=== PATIENT | female | born 1945 | race Caucasian/White ===

== ENCOUNTER → 2016-09-09 | Outpatient (CLI) | payer MEDICARE, MEDICAID ==
[~2016-09-09] MED LIST: SIMV10TA2
== END | disposition home or self-care (01) ==
LOC: MAMMO 08:25
PROVIDERS: ATTEND Specialist
DX: Z12.31 Encounter for screening mammogram for malignant neoplasm of breast (principal)
CPT/HCPCS: G0202

== ENCOUNTER → 2016-09-23 | Outpatient (CLI) | payer MEDICARE, MEDICAID | END | disposition home or self-care (01) | LOC: MAMMO 09:04 | PROVIDERS: ATTEND Specialist | DX: N63 Unspecified lump in breast (principal) | CPT/HCPCS: 76641; G0206 ==

== ENCOUNTER 2016-12-04 13:51 | Emergency (ER) | payer MEDICARE, MEDICAID ==
[~2016-12-04] VITALS: Ht 147.3 cm; Wt 48.0 kg
[2016-12-04 13:53] VITALS: BP 165/80
== END 2016-12-04 19:00 | disposition left against medical advice (07) ==
LOC: ER 13:51
DX: Z53.21 Procedure and treatment not carried out due to patient leaving prior to being seen by health care provider (principal)

== ENCOUNTER → 2017-09-24 | Outpatient (CLI) | payer MEDICARE, MEDICAID | END | disposition home or self-care (01) | LOC: MAMMO 10:59 | PROVIDERS: ATTEND Specialist | DX: Z12.31 Encounter for screening mammogram for malignant neoplasm of breast (principal); R92.1 Mammographic calcification found on diagnostic imaging of breast | CPT/HCPCS: 77067 ==

== ENCOUNTER 2019-05-15 07:19 | Inpatient (IN) | payer MEDICARE, MEDICAID ==
[2019-05-15] VITALS (9 sets, daily range): BP systolic 125–154; BP diastolic 66–94
[~2019-05-15] VITALS: Ht 160 cm; Wt 53.6 kg
[2019-05-15] MEDS ORDERED: POTA-79 PO (08:28)
[2019-05-15] MEDS ORDERED: MULT-1146 PO (08:28)
[2019-05-15] MEDS ORDERED: FURO40TA5 PO (08:28)
[2019-05-15] MEDS ORDERED: PRAV40TA PO (08:28)
[2019-05-15] MEDS ORDERED: DIGO125T PO (08:28)
[2019-05-15] MEDS ORDERED: LEVO75TA7 PO (08:28)
[2019-05-15] MEDS ORDERED: DILT360T13 PO (08:28)
[2019-05-15] MEDS ORDERED: DONE5TAB33 PO (08:28)
[2019-05-15] MEDS ORDERED: WARF2.5T47 PO (08:28)
[2019-05-15] MEDS ORDERED: METO-396 PO (08:28)
[2019-05-15] MEDS ORDERED: MIRT15TA6 PO (08:28)
[2019-05-15] MEDS ORDERED: LOSA25TA26 PO (08:28)
[2019-05-15 08:40] LABS: BASOPHILS % 0.5 % (0.0-2.0); EOSINOPHILS % 0.9 % (0.0-5.0); HEMATOCRIT. 39.6 % (36.0-48.0); HEMOGLOBIN. 13.4 g/dL (12.0-16.0); LYMPHOCYTES % 12.4 % (20.0-50.0); MEAN CORPUSCULAR HEMOGLOBIN 29.9 pg (28.0-32.0); MEAN CORPUSCULAR VOLUME 88.3 fL (81.0-99.0); MEAN PLATELET VOLUME 8.6 fl (7.4-10.4); MONOCYTES % 7.3 % (2.0-8.0); NEUTROPHILS % 78.9 % (40.0-76.0); PLATELET 273 x1000/uL (130-400); RED BLOOD CELL COUNT 4.49 mill/uL (4.2-5.4)
[2019-05-15 08:50] LABS: INR 1.7; PARTIAL THROMBOPLASTIN TIME 36.4 sec (23.4-31.0); PROTHROMBIN TIME 17.6 sec (9.6-11.0)
[2019-05-15] MEDS ORDERED: GENTAMICIN SULF 40MG/ML 2ML VIAL ONE (10:42)
[2019-05-15] MEDS ORDERED: CEFAZOLIN 1000MG PREMIX 0 ML IV ONE (10:43)
[2019-05-15] MEDS ORDERED: GENTAMICIN/NS IRRIGATION 500 ML IR ONE (10:43)
[2019-05-15] MEDS ORDERED: LIDOCAINE HCL 1% 20ML VIAL (Pyxis) INJ ONE (10:43)
[2019-05-15] MEDS ORDERED: IODIXANOL 320MG/ML 100 ML BOTTLE IV ONE (10:44)
[2019-05-15] MEDS ORDERED: GLYCOPYRROLATE 0.2 MG/ML 2ML VIAL ONE (11:02)
[2019-05-15] MEDS ORDERED: FENTANYL CITRATE/PF 50MCG/ML 2ML VIAL ONE (11:02)
[2019-05-15] MEDS ORDERED: PROPOFOL 200MG/20ML VIAL IV ONE (11:02)
[2019-05-15] MEDS ORDERED: MIDAZOLAM HCL 2 MG/2 ML VIAL ONE (11:02)
[2019-05-15] MEDS ORDERED: ONDANSETRON HCL 4MG/2ML INJ ONE (11:03)
[2019-05-15] MEDS ORDERED: METOCLOPRAMIDE HCL 10MG/2ML VIAL ONE (11:03)
[2019-05-15] MEDS ORDERED: LIDOCAINE HCL/PF 1% 10 MG/ML 5ML VIAL ONE (11:03)
[2019-05-15] MEDS ORDERED: SUCCINYLCHOLINE CHLORIDE 200MG/10ML IV ONE (11:03)
[2019-05-15] MEDS ORDERED: PROPOFOL 10MG/ML 100ML 100 ML IV ONE (11:25)
[2019-05-15] MEDS ORDERED: DIGOXIN 125MCG TABLET PO SCH (18:00)
[2019-05-15] MEDS: DONEPEZIL HCL 5MG TABLET PO SCH (19:56)
[2019-05-15] MEDS: WARFARIN SODIUM 2.5MG TABLET PO SCH (19:56)
[2019-05-15] MEDS: MIRTAZAPINE 15MG TABLET PO SCH (22:10)
[2019-05-15] MEDS: METOPROLOL TARTRATE 25MG TABLET PO SCH (22:13)
[2019-05-16] VITALS (15 sets, daily range): BP systolic 99–146; BP diastolic 49–100
[2019-05-16] MEDS: FUROSEMIDE 40MG TABLET PO SCH (08:32)
[2019-05-16] MEDS: DILTIAZEM HCL 180MG CAPSULE CD 24HR PO SCH (08:33)
[2019-05-16] MEDS: METOPROLOL TARTRATE 25MG TABLET PO SCH ×2 (08:33→21:46)
[2019-05-16] MEDS: LOSARTAN POTASSIUM 25 MG TABLET PO SCH (08:34)
[2019-05-16] MEDS: POTASSIUM CHLORIDE 20MEQ TABLET SR PO SCH (08:34)
[2019-05-16] MEDS: LEVOTHYROXINE SODIUM 75MCG TABLET PO SCH (08:34)
[2019-05-16] MEDS: HYDROCODONE/ACETAMINOPHEN 5/325MG TABLET PO PRN (08:35)
[2019-05-16 08:48] LABS: INR 1.6; PROTHROMBIN TIME 15.9 sec (9.6-11.0)
[2019-05-16 10:05] LABS: BASOPHILS % 0.7 % (0.0-2.0); EOSINOPHILS % 0.7 % (0.0-5.0); HEMATOCRIT. 38.4 % (36.0-48.0); HEMOGLOBIN. 13.1 g/dL (12.0-16.0); LYMPHOCYTES % 14.5 % (20.0-50.0); MEAN CORPUSCULAR VOLUME 87.8 fL (81.0-99.0); MEAN PLATELET VOLUME 9.2 fl (7.4-10.4); MONOCYTES % 6.9 % (2.0-8.0); NEUTROPHILS % 77.2 % (40.0-76.0); PLATELET 262 x1000/uL (130-400); RED BLOOD CELL COUNT 4.38 mill/uL (4.2-5.4); RED CELL DISTRIBUTION WIDTH 15.5 % (11.6-14.6)
[2019-05-16 10:08] LABS: CHLORIDE 107 mEq/L (98-107)
[2019-05-16 10:29] LABS: DIGOXIN 1.5 ng/mL (0.9-2.0)
[2019-05-16] MEDS ORDERED: DIGOXIN 500MCG/2ML AMP IV SCH (13:00)
[2019-05-16] MEDS: WARFARIN SODIUM 2.5MG TABLET PO SCH (17:43)
[2019-05-16] MEDS ORDERED: DIGOXIN 250MCG TABLET PO SCH (18:00)
[2019-05-16] MEDS ORDERED: CHOL500051 PO (18:13)
[2019-05-16] MEDS ORDERED: CLONIDINE 0.1MG TABLET PO PRN (18:45)
[2019-05-16] MEDS: MIRTAZAPINE 15MG TABLET PO SCH (21:46)
[2019-05-16] MEDS: DONEPEZIL HCL 5MG TABLET PO SCH (21:46)
[2019-05-17] VITALS (15 sets, daily range): BP systolic 97–128; BP diastolic 50–83
[2019-05-17] MEDS: FUROSEMIDE 40MG TABLET PO SCH (05:57)
[2019-05-17] MEDS: LEVOTHYROXINE SODIUM 75MCG TABLET PO SCH (05:57)
[2019-05-17 06:04] LABS: BASOPHILS % 0.7 % (0.0-2.0); EOSINOPHILS % 0.4 % (0.0-5.0); HEMOGLOBIN. 13.2 g/dL (12.0-16.0); LYMPHOCYTES % 18.7 % (20.0-50.0); MEAN CORPUSCULAR HEMOGLOBIN 29.9 pg (28.0-32.0); MEAN CORPUSCULAR VOLUME 88.5 fL (81.0-99.0); MEAN PLATELET VOLUME 8.7 fl (7.4-10.4); MONOCYTES % 8.7 % (2.0-8.0); NEUTROPHILS % 71.5 % (40.0-76.0); PLATELET 267 x1000/uL (130-400); RED BLOOD CELL COUNT 4.41 mill/uL (4.2-5.4); RED CELL DISTRIBUTION WIDTH 15.9 % (11.6-14.6)
[2019-05-17 06:31] LABS: INR 1.5; PROTHROMBIN TIME 15.4 sec (9.6-11.0)
[2019-05-17] MEDS: POTASSIUM CHLORIDE 20MEQ TABLET SR PO SCH (08:29)
[2019-05-17] MEDS: METOPROLOL TARTRATE 25MG TABLET PO SCH ×2 (08:29→21:53)
[2019-05-17] MEDS: DILTIAZEM HCL 180MG CAPSULE CD 24HR PO SCH (08:29)
[2019-05-17] MEDS: LOSARTAN POTASSIUM 25 MG TABLET PO SCH (08:30)
[2019-05-17] MEDS: HYDROCODONE/ACETAMINOPHEN 5/325MG TABLET PO PRN (09:54)
[2019-05-17] MEDS ORDERED: ACETAMINOPHEN 325MG TABLET PO PRN (16:30)
[2019-05-17] MEDS: DIGOXIN 125MCG TABLET PO SCH (17:37)
[2019-05-17] MEDS: WARFARIN SODIUM 7.5MG TABLET PO SCH (17:37)
[2019-05-17] MEDS: DONEPEZIL HCL 5MG TABLET PO SCH (21:53)
[2019-05-17] MEDS: MIRTAZAPINE 15MG TABLET PO SCH (21:53)
[2019-05-18] VITALS (14 sets, daily range): BP systolic 103–144; BP diastolic 48–79
[2019-05-18] MEDS: LEVOTHYROXINE SODIUM 75MCG TABLET PO SCH (06:47)
[2019-05-18] MEDS: FUROSEMIDE 40MG TABLET PO SCH (06:47)
[2019-05-18 07:23] LABS: CHLORIDE 101 mEq/L (98-107)
[2019-05-18 07:55] LABS: DIGOXIN 2.5 ng/mL (0.9-2.0)
[2019-05-18] MEDS: POTASSIUM CHLORIDE 20MEQ TABLET SR PO SCH (08:21)
[2019-05-18] MEDS: DILTIAZEM HCL 180MG CAPSULE CD 24HR PO SCH (08:21)
[2019-05-18] MEDS: METOPROLOL TARTRATE 25MG TABLET PO SCH (08:22)
[2019-05-18] MEDS: LOSARTAN POTASSIUM 25 MG TABLET PO SCH (08:22)
[2019-05-18 08:30] LABS: BASOPHILS % 0.5 % (0.0-2.0); EOSINOPHILS % 0.3 % (0.0-5.0); HEMATOCRIT. 38.7 % (36.0-48.0); MEAN CORPUSCULAR HEMOGLOBIN 29.7 pg (28.0-32.0); MEAN CORPUSCULAR VOLUME 88.6 fL (81.0-99.0); MEAN PLATELET VOLUME 9.3 fl (7.4-10.4); MONOCYTES % 8.3 % (2.0-8.0); NEUTROPHILS % 80.9 % (40.0-76.0); PLATELET 226 x1000/uL (130-400); RED BLOOD CELL COUNT 4.37 mill/uL (4.2-5.4); RED CELL DISTRIBUTION WIDTH 15.8 % (11.6-14.6)
[2019-05-18] MEDS: WARFARIN SODIUM 7.5MG TABLET PO SCH (17:04)
[2019-05-18] MEDS: DIGOXIN 125MCG TABLET PO SCH (17:04)
== END 2019-05-18 22:05 | DRG 242 ==
LOC: CARD 07:19 → 3WST 07:20
PROVIDERS: ADMIT Internal Medicine Clinical Cardiac Electrophysiology; ATTEND Internal Medicine Clinical Cardiac Electrophysiology
PROC: B5171ZZ Fluoroscopy of Left Subclavian Vein using Low Osmolar Contrast (ICD-10-PCS; principal; 2019-05-15)
PROC: 02HK3JZ Insertion of Pacemaker Lead into Right Ventricle, Percutaneous Approach (ICD-10-PCS; 2019-05-15)
PROC: 0JH604Z Insertion of Pacemaker, Single Chamber into Chest Subcutaneous Tissue and Fascia, Open Approach (ICD-10-PCS; 2019-05-15)
DX: I48.21 Permanent atrial fibrillation (principal); G93.41 Metabolic encephalopathy; G62.81 Critical illness polyneuropathy; E03.9 Hypothyroidism, unspecified; I49.5 Sick sinus syndrome; I25.10 Atherosclerotic heart disease of native coronary artery without angina pectoris; F32.9 Major depressive disorder, single episode, unspecified; F41.9 Anxiety disorder, unspecified; I10 Essential (primary) hypertension; M19.90 Unspecified osteoarthritis, unspecified site; D72.829 Elevated white blood cell count, unspecified; E78.00 Pure hypercholesterolemia, unspecified; E78.5 Hyperlipidemia, unspecified; F03.90 Unspecified dementia, unspecified severity, without behavioral disturbance, psychotic disturbance, mood disturbance, and anxiety; R73.9 Hyperglycemia, unspecified; Z77.22 Contact with and (suspected) exposure to environmental tobacco smoke (acute) (chronic); Z93.3 Colostomy status; Z95.0 Presence of cardiac pacemaker; Z95.1 Presence of aortocoronary bypass graft; Z95.2 Presence of prosthetic heart valve; Z90.49 Acquired absence of other specified parts of digestive tract; Z79.01 Long term (current) use of anticoagulants; Z85.038 Personal history of other malignant neoplasm of large intestine
CPT/HCPCS: 33207; 36415; 71045; 75820; 80048; 80162; 83735; 84443; 85025; 93005; 97116; 97162; C1786; C1893; C1898; J0330; J0690; J1160; J1580; J2250; J2405; J2704; J2765; J3010; J3490; Q9967

== ENCOUNTER 2019-09-22 21:13 | Inpatient (IN) | payer MEDICARE, MEDICAID ==
[~2019-09-22] VITALS: Ht 142.2 cm; Wt 52.6 kg
[~2019-09-22 21:13] MED LIST changes: +CHOL500051 PO; +DIGO125T PO; +DILT360T13 PO; +DONE5TAB33 PO; +FURO40TA5 PO; +LEVO75TA7 PO; +LOSA25TA26 PO; +METO-396 PO; +MIRT15TA6 PO; +POTA-79 PO; +PRAV40TA PO; -SIMV10TA2; +WARF2.5T47 PO
[2019-09-22 23:59] LABS: HEMATOCRIT. 42.2 % (36.0-48.0); HEMOGLOBIN. 13.8 g/dL (12.0-16.0); MEAN CORPUSCULAR HEMOGLOBIN 30.3 pg (28.0-32.0); MEAN CORPUSCULAR VOLUME 92.7 fL (81.0-99.0); PLATELET 314 x1000/uL (130-400); RED BLOOD CELL COUNT 4.55 mill/uL (4.2-5.4); RED CELL DISTRIBUTION WIDTH 16.6 % (11.6-14.6)
[2019-09-23 00:02] LABS: CHLORIDE 106 mEq/L (98-107)
[2019-09-23 00:03] LABS: INR 2.4; PROTHROMBIN TIME 25.6 sec (9.6-11.0)
[2019-09-23 00:53] LABS: CLARITY URINE CLEAR (CLEAR); COLOR URINE DARK YELLOW (YELLOW); KETONES URINE NEGATIVE (NEGATIVE); LEUKOCYTE ESTERASE URINE TRACE (NEGATIVE); NITRITE URINE NEGATIVE (NEGATIVE); OCCULT BLOOD URINE NEGATIVE (NEGATIVE); PH URINE 6.5 (4.5-8.0); PROTEIN URINE 2+ (NEGATIVE); SPECIFIC GRAVITY URINE 1.023 (1.005-1.030)
[2019-09-23 02:35] LABS: PLATELET ESTIMATE NORMAL
[2019-09-23 11:50] VITALS: BP 135/85
[2019-09-23 11:53] VITALS: BP 135/85
[2019-09-23] MEDS: ACETAMINOPHEN 325MG TABLET PO PRN (13:29)
[2019-09-23] MEDS: SODIUM CHLORIDE 0.9% 1,000 ML IV SCH (13:36)
[2019-09-23 14:00] VITALS: BP 149/94
[2019-09-23] MEDS: METOPROLOL TARTRATE 5MG/5ML VIAL IV SCH ×2 (14:15→21:21)
[2019-09-23 16:00] VITALS: BP 157/83
[2019-09-23] MEDS: MORPHINE SULFATE 2 MG/ML CPJ (NOT FOR IM USE) IV PRN ×3 (16:20→23:32)
[2019-09-23] MEDS ORDERED: LEVOFLOXACIN 500MG PREMIX 100 ML IV SCH (16:30)
[2019-09-23] MEDS: METRONIDAZOLE 500 MG PREMIX 100 ML IV SCH (16:50)
[2019-09-23 17:47] LABS: HEPATITIS B SURFACE ANTIGEN NEGATIVE
[2019-09-23 18:17] LABS: HEPATITIS A AB IGM NEGATIVE (NEGATIVE)
[2019-09-23 20:00] VITALS: BP 141/100
[2019-09-23] MEDS: ONDANSETRON HCL 4MG/2ML INJ IV PRN (21:21)
[2019-09-23 22:00] VITALS: BP 157/87
[2019-09-24] VITALS (8 sets, daily range): BP systolic 119–152; BP diastolic 58–97
[2019-09-24] MEDS: METRONIDAZOLE 500 MG PREMIX 100 ML IV SCH ×3 (00:59→16:30)
[2019-09-24] MEDS: ACETAMINOPHEN 325MG TABLET PO PRN ×2 (02:19→16:30)
[2019-09-24] MEDS: DILTIAZEM HCL 5MG/ML 5ML VIAL IV PRN ×2 (02:20→10:59)
[2019-09-24] MEDS: SODIUM CHLORIDE 0.9% 1,000 ML IV SCH ×2 (02:21→12:45)
[2019-09-24 07:12] LABS: BASOPHILS % 0.2 % (0.0-2.0); EOSINOPHILS % 0.5 % (0.0-5.0); HEMATOCRIT. 35.7 % (36.0-48.0); HEMOGLOBIN. 11.9 g/dL (12.0-16.0); LYMPHOCYTES % 11.7 % (20.0-50.0); MEAN CORPUSCULAR HEMOGLOBIN 30.6 pg (28.0-32.0); MEAN CORPUSCULAR VOLUME 91.6 fL (81.0-99.0); MEAN PLATELET VOLUME 8.8 fl (7.4-10.4); MONOCYTES % 7.5 % (2.0-8.0); NEUTROPHILS % 80.1 % (40.0-76.0); PLATELET 246 x1000/uL (130-400); RED CELL DISTRIBUTION WIDTH 15.8 % (11.6-14.6)
[2019-09-24 07:13] LABS: INR 1.8; PROTHROMBIN TIME 19.7 sec (9.6-11.0)
[2019-09-24 08:01] LABS: CHLORIDE 110 mEq/L (98-107)
[2019-09-24 08:09] LABS: HDL CHOLESTEROL 27 mg/dL (40-59)
[2019-09-24 08:10] LABS: LDL CHOLESTEROL 105 mg/dL (5-100)
[2019-09-24 08:25] LABS: DIGOXIN 0.8 ng/mL (0.9-2.0)
[2019-09-24 09:14] LABS: AMYLASE 1388 IU/L (25-115)
[2019-09-24] MEDS ORDERED: DIGOXIN 500MCG/2ML AMP IV SCH (11:00)
[2019-09-24] MEDS: MORPHINE SULFATE 2 MG/ML CPJ (NOT FOR IM USE) IV PRN ×2 (11:52→22:47)
[2019-09-24] MEDS: ENOXAPARIN 60MG/0.6ML SYR SUBCUT SCH ×2 (12:45→22:31)
[2019-09-24] MEDS: DILTIAZEM HCL 125 MG in DEXT 5% WATER 100 ML IV SCH ×2 (13:49→23:51)
[2019-09-24] MEDS ORDERED: LEVOFLOXACIN 250MG PREMIX 50 ML IV SCH (17:00)
[2019-09-24] MEDS: DIGOXIN 500MCG/2ML AMP IV SCH (17:41)
[2019-09-25] VITALS (12 sets, daily range): BP systolic 108–149; BP diastolic 49–81
[2019-09-25] MEDS: SODIUM CHLORIDE 0.9% 1,000 ML IV SCH ×2 (00:04→20:25)
[2019-09-25] MEDS: METRONIDAZOLE 500 MG PREMIX 100 ML IV SCH ×2 (01:34→09:15)
[2019-09-25 07:07] LABS: BASOPHILS % 0.6 % (0.0-2.0); EOSINOPHILS % 0.8 % (0.0-5.0); HEMATOCRIT. 34.8 % (36.0-48.0); HEMOGLOBIN. 11.6 g/dL (12.0-16.0); LYMPHOCYTES % 8.6 % (20.0-50.0); MEAN CORPUSCULAR HEMOGLOBIN 30.7 pg (28.0-32.0); MEAN CORPUSCULAR VOLUME 92.4 fL (81.0-99.0); MEAN PLATELET VOLUME 9.1 fl (7.4-10.4); MONOCYTES % 8.2 % (2.0-8.0); NEUTROPHILS % 81.8 % (40.0-76.0); PLATELET 217 x1000/uL (130-400); RED BLOOD CELL COUNT 3.77 mill/uL (4.2-5.4); RED CELL DISTRIBUTION WIDTH 15.2 % (11.6-14.6)
[2019-09-25 07:16] LABS: INR 1.4; PROTHROMBIN TIME 15.1 sec (9.6-11.0)
[2019-09-25 07:47] LABS: CHLORIDE 107 mEq/L (98-107)
[2019-09-25] MEDS: ENOXAPARIN 60MG/0.6ML SYR SUBCUT SCH ×2 (09:30→20:24)
[2019-09-25 09:42] LABS: AMYLASE 395 IU/L (25-115)
[2019-09-25] MEDS ORDERED: DILTIAZEM HCL 125 MG in DEXT 5% WATER 100 ML IV SCH (12:03)
[2019-09-25] MEDS: MORPHINE SULFATE 2 MG/ML CPJ (NOT FOR IM USE) IV PRN ×2 (12:06→16:12)
[2019-09-25] MEDS ORDERED: DILTIAZEM HCL 5MG/ML 5ML VIAL IV PRN (13:15)
[2019-09-25] MEDS ORDERED: PIPERACILLIN/TAZOBACTAM 3.375 G/VIAL IV SCH (14:00)
[2019-09-25] MEDS ORDERED: PIPERACILLIN/TAZ 3.375G PREMIX 50 ML IV SCH (15:00)
[2019-09-25] MEDS: DILTIAZEM HCL 125 MG in DEXT 5% WATER 100 ML IV SCH (16:20)
[2019-09-25] MEDS: DIGOXIN 500MCG/2ML AMP IV SCH (17:26)
[2019-09-25] MEDS: ACETAMINOPHEN 325MG TABLET PO PRN (20:23)
[2019-09-25] MEDS: MEROPENEM 500 MG in SODIUM CHLORIDE 0.9% 50 ML IV SCH (20:24)
[2019-09-25] MEDS: ONDANSETRON HCL 4MG/2ML INJ IV PRN (20:40)
[2019-09-26] VITALS (11 sets, daily range): BP systolic 114–143; BP diastolic 50–102
[2019-09-26] MEDS: ONDANSETRON HCL 4MG/2ML INJ IV PRN (04:06)
[2019-09-26] MEDS: ACETAMINOPHEN 325MG TABLET PO PRN ×3 (04:06→22:01)
[2019-09-26] MEDS: MEROPENEM 500 MG in SODIUM CHLORIDE 0.9% 50 ML IV SCH ×3 (04:57→22:00)
[2019-09-26] MEDS: DILTIAZEM HCL 125 MG in DEXT 5% WATER 100 ML IV SCH (06:02)
[2019-09-26 06:38] LABS: HEMATOCRIT. 33.4 % (36.0-48.0); HEMOGLOBIN. 11.2 g/dL (12.0-16.0); MEAN CORPUSCULAR VOLUME 92.2 fL (81.0-99.0); MEAN PLATELET VOLUME 9.3 fl (7.4-10.4); PLATELET 228 x1000/uL (130-400); RED BLOOD CELL COUNT 3.63 mill/uL (4.2-5.4); RED CELL DISTRIBUTION WIDTH 15.1 % (11.6-14.6)
[2019-09-26 07:13] LABS: INR 1.2; PARTIAL THROMBOPLASTIN TIME 44.6 sec (23.4-31.0); PROTHROMBIN TIME 13.4 sec (9.6-11.0)
[2019-09-26 07:19] LABS: CHLORIDE 108 mEq/L (98-107)
[2019-09-26 07:26] LABS: AMYLASE 213 IU/L (25-115)
[2019-09-26] MEDS: ENOXAPARIN 60MG/0.6ML SYR SUBCUT SCH ×2 (09:00→21:00)
[2019-09-26 10:37] LABS: PLATELET ESTIMATE NORMAL
[2019-09-26] MEDS: SODIUM CHLORIDE 0.9% 1,000 ML IV SCH (12:37)
[2019-09-26] MEDS: PREDNISONE 20MG TABLET PO SCH (13:36)
[2019-09-26] MEDS: DIGOXIN 500MCG/2ML AMP IV SCH (17:29)
[2019-09-26] MEDS: DILTIAZEM HCL 60MG TABLET PO SCH (17:30)
[2019-09-26] MEDS ORDERED: DILTIAZEM HCL 30MG TABLET PO NR (21:29)
[2019-09-26] MEDS ORDERED: METOPROLOL TARTRATE 25MG TABLET PO SCH (21:45)
[2019-09-26] MEDS: METOPROLOL TARTRATE 25MG TABLET PO SCH (22:00)
[2019-09-27] VITALS (12 sets, daily range): BP systolic 110–134; BP diastolic 53–94
[2019-09-27] MEDS: DILTIAZEM HCL 60MG TABLET PO SCH ×5 (01:13→23:54)
[2019-09-27] MEDS: SODIUM CHLORIDE 0.9% 1,000 ML IV SCH ×2 (02:04→18:47)
[2019-09-27] MEDS: MEROPENEM 500 MG in SODIUM CHLORIDE 0.9% 50 ML IV SCH ×3 (05:12→21:33)
[2019-09-27 07:21] LABS: BASOPHILS % 0.3 % (0.0-2.0); EOSINOPHILS % 0.1 % (0.0-5.0); HEMATOCRIT. 35.4 % (36.0-48.0); HEMOGLOBIN. 11.9 g/dL (12.0-16.0); LYMPHOCYTES % 8.8 % (20.0-50.0); MEAN CORPUSCULAR HEMOGLOBIN 30.7 pg (28.0-32.0); MEAN CORPUSCULAR VOLUME 91.5 fL (81.0-99.0); MEAN PLATELET VOLUME 9.1 fl (7.4-10.4); NEUTROPHILS % 87.8 % (40.0-76.0); PLATELET 277 x1000/uL (130-400); RED BLOOD CELL COUNT 3.86 mill/uL (4.2-5.4); RED CELL DISTRIBUTION WIDTH 15.1 % (11.6-14.6)
[2019-09-27 07:27] LABS: INR 1.1; PROTHROMBIN TIME 11.9 sec (9.6-11.0)
[2019-09-27 07:37] LABS: CHLORIDE 111 mEq/L (98-107)
[2019-09-27] MEDS ORDERED: METOPROLOL TARTRATE 25MG TABLET PO SCH (09:00)
[2019-09-27] MEDS: ENOXAPARIN 60MG/0.6ML SYR SUBCUT SCH ×2 (09:36→20:44)
[2019-09-27] MEDS: PREDNISONE 20MG TABLET PO SCH (09:36)
[2019-09-27] MEDS: METOPROLOL TARTRATE 25MG TABLET PO SCH ×2 (09:40→20:43)
[2019-09-27] MEDS: RISPERIDONE 0.25MG TABLET PO SCH ×2 (14:40→20:43)
[2019-09-27] MEDS: DIGOXIN 500MCG/2ML AMP IV SCH (17:47)
[2019-09-27] MEDS: ACETAMINOPHEN 325MG TABLET PO PRN (20:43)
[2019-09-28] VITALS (10 sets, daily range): BP systolic 127–148; BP diastolic 59–98
[2019-09-28] MEDS: MEROPENEM 500 MG in SODIUM CHLORIDE 0.9% 50 ML IV SCH ×3 (05:01→21:00)
[2019-09-28] MEDS: DILTIAZEM HCL 60MG TABLET PO SCH ×3 (05:05→18:00)
[2019-09-28 06:55] LABS: BASOPHILS % 0.1 % (0.0-2.0); EOSINOPHILS % 0.4 % (0.0-5.0); HEMATOCRIT. 32.3 % (36.0-48.0); HEMOGLOBIN. 11.1 g/dL (12.0-16.0); LYMPHOCYTES % 13.4 % (20.0-50.0); MEAN CORPUSCULAR VOLUME 90.5 fL (81.0-99.0); MEAN PLATELET VOLUME 8.2 fl (7.4-10.4); MONOCYTES % 6.5 % (2.0-8.0); NEUTROPHILS % 79.6 % (40.0-76.0); PLATELET 288 x1000/uL (130-400); RED BLOOD CELL COUNT 3.57 mill/uL (4.2-5.4); RED CELL DISTRIBUTION WIDTH 15.3 % (11.6-14.6)
[2019-09-28 07:39] LABS: CHLORIDE 112 mEq/L (98-107)
[2019-09-28 07:53] LABS: AMYLASE 238 IU/L (25-115)
[2019-09-28] MEDS ORDERED: KCL 20MEQ/100ML PREMIX 100 ML IV NR (09:00)
[2019-09-28] MEDS: ENOXAPARIN 60MG/0.6ML SYR SUBCUT SCH ×2 (09:00→20:54)
[2019-09-28] MEDS: PREDNISONE 5MG TABLET PO SCH (10:31)
[2019-09-28] MEDS: METOPROLOL TARTRATE 25MG TABLET PO SCH (10:31)
[2019-09-28] MEDS: RISPERIDONE 0.25MG TABLET PO SCH (10:32)
[2019-09-28] MEDS: SODIUM CHLORIDE 0.9% 1,000 ML IV SCH (10:33)
[2019-09-28] MEDS ORDERED: HALOPERIDOL LACTATE 5MG/ML VIAL IM PRN (12:30)
[2019-09-28] MEDS ORDERED: LIDOCAINE HCL 1% 20ML VIAL (Pyxis) INJ ONE ×2 (14:04→16:40)
[2019-09-28] MEDS ORDERED: BUPIVACAINE HCL/PF 0.5% (5MG/ML) 10ML ONE ×2 (14:04→14:05)
[2019-09-28] MEDS ORDERED: BACITRACIN 50,000 UNITS/VIAL ONE (14:05)
[2019-09-28] MEDS ORDERED: FENTANYL CITRATE/PF 50MCG/ML 2ML VIAL ONE (15:41)
[2019-09-28] MEDS ORDERED: ROCURONIUM BROMIDE 10MG/ML VIAL 5ML IV ONE (15:41)
[2019-09-28] MEDS ORDERED: NEOSTIGMINE METHYLSULFATE 1MG/ML 10 ML VIAL ONE (15:41)
[2019-09-28] MEDS ORDERED: MIDAZOLAM HCL 2 MG/2 ML VIAL ONE (15:41)
[2019-09-28] MEDS ORDERED: PROPOFOL 200MG/20ML VIAL IV ONE (15:41)
[2019-09-28] MEDS ORDERED: GLYCOPYRROLATE 0.2 MG/ML 2ML VIAL ONE (15:42)
[2019-09-28] MEDS ORDERED: ONDANSETRON HCL 4MG/2ML INJ ONE (15:56)
[2019-09-28] MEDS ORDERED: DEXAMETHASONE 4MG/ML 1ML VIAL ONE (15:56)
[2019-09-28] MEDS ORDERED: ONDANSETRON HCL 4MG/2ML INJ IV PRN (16:15)
[2019-09-28] MEDS ORDERED: HYDROMORPHONE HCL/PF 2MG/ML CPJ IV PRN (16:15)
[2019-09-28] MEDS ORDERED: MEPERIDINE HCL/PF 25MG/ML CPJ IV PRN (16:15)
[2019-09-28] MEDS ORDERED: LABETALOL 5MG/ML SYR 20 MG/4 ML SYRINGE IV PRN (16:15)
[2019-09-28] MEDS ORDERED: HYDROMORPHONE HCL/PF 2MG/ML (OR) ONE (16:39)
[2019-09-28] MEDS ORDERED: SODIUM CHLORIDE 0.9% 10ML VIAL ONE (16:40)
[2019-09-28 20:11] LABS: BG BASE EXCESS -2.2 mmol/L (-2.0-2.0); BG CARBOXYHEMOGLOBIN 0.3 % (0.5-1.5); BG DEOXYHEMOGLOBIN 6.3 % (0.0-5.0); BG FRACTION INSPIRED OXYGEN 50; BG HCO3 ACT 23.9 mmol/L (22.0-26.0); BG METHEMOGLOBIN 0.4 % (0.0-1.5); BG OXYGEN SATURATION 93.7 % (92.0-98.5); BG PCO2 46.3 mmHg (35.0-45.0); BG PH 7.331 (7.350-7.450); BG PO2 72.8 mmHg (75.0-100.0); BG SAMPLE SITE RIGHT RADIAL; BG TOTAL HEMOGLOBIN 12.2 g/dL (12.0-18.0); BG VENT MODE MASK - SIMPLE
[2019-09-28] MEDS: RISPERIDONE 0.5MG TABLET PO SCH (21:00)
[2019-09-28] MEDS ORDERED: DILTIAZEM HCL 5MG/ML 5ML VIAL IV PRN (22:00)
[2019-09-28] MEDS: MORPHINE SULFATE 4 MG/ML CPJ (NOT FOR IM USE) IV PRN (22:00)
[2019-09-28] MEDS: METOPROLOL TARTRATE 5MG/5ML VIAL IV SCH (22:13)
[2019-09-29] VITALS (12 sets, daily range): BP systolic 133–170; BP diastolic 68–103
[2019-09-29] MEDS: MORPHINE SULFATE 4 MG/ML CPJ (NOT FOR IM USE) IV PRN ×2 (01:51→08:12)
[2019-09-29] MEDS: SODIUM CHLORIDE 0.9% 1,000 ML IV SCH ×2 (01:59→20:56)
[2019-09-29] MEDS: METOPROLOL TARTRATE 5MG/5ML VIAL IV SCH ×2 (05:02→14:00)
[2019-09-29] MEDS: MEROPENEM 500 MG in SODIUM CHLORIDE 0.9% 50 ML IV SCH ×3 (05:02→20:53)
[2019-09-29 07:18] LABS: HEMATOCRIT. 37.7 % (36.0-48.0); HEMOGLOBIN. 12.6 g/dL (12.0-16.0); MEAN CORPUSCULAR HEMOGLOBIN 30.6 pg (28.0-32.0); MEAN CORPUSCULAR VOLUME 91.3 fL (81.0-99.0); MEAN PLATELET VOLUME 8.8 fl (7.4-10.4); PLATELET 307 x1000/uL (130-400); RED BLOOD CELL COUNT 4.12 mill/uL (4.2-5.4); RED CELL DISTRIBUTION WIDTH 15.4 % (11.6-14.6)
[2019-09-29 07:22] LABS: INR 1.2; PROTHROMBIN TIME 12.5 sec (9.6-11.0)
[2019-09-29 07:30] LABS: CHLORIDE 106 mEq/L (98-107)
[2019-09-29] MEDS: RISPERIDONE 0.5MG TABLET PO SCH ×2 (08:10→20:55)
[2019-09-29] MEDS: PREDNISONE 5MG TABLET PO SCH (08:11)
[2019-09-29] MEDS: ENOXAPARIN 60MG/0.6ML SYR SUBCUT SCH ×2 (09:00→20:54)
[2019-09-29 11:16] LABS: PLATELET ESTIMATE NORMAL
[2019-09-29] MEDS: TRAMADOL 50MG TABLET PO PRN ×2 (13:21→20:55)
[2019-09-29] MEDS: ACETAMINOPHEN 325MG TABLET PO PRN (17:50)
[2019-09-29] MEDS ORDERED: DILTIAZEM HCL 60MG TABLET PO SCH (18:00)
[2019-09-29] MEDS ORDERED: DILTIAZEM HCL 30MG TABLET PO NR (18:30)
[2019-09-29 20:28] LABS: HEMATOCRIT. 34.7 % (36.0-48.0); HEMOGLOBIN. 11.8 g/dL (12.0-16.0); MEAN CORPUSCULAR HEMOGLOBIN 30.9 pg (28.0-32.0); MEAN CORPUSCULAR VOLUME 90.6 fL (81.0-99.0); MEAN PLATELET VOLUME 8.3 fl (7.4-10.4); PLATELET 324 x1000/uL (130-400); RED BLOOD CELL COUNT 3.83 mill/uL (4.2-5.4); RED CELL DISTRIBUTION WIDTH 15.2 % (11.6-14.6)
[2019-09-29 20:40] LABS: CHLORIDE 107 mEq/L (98-107)
[2019-09-29] MEDS: METOPROLOL TARTRATE 25MG TABLET PO SCH (20:54)
[2019-09-29 23:03] LABS: PLATELET ESTIMATE NORMAL
[2019-09-29] MEDS: DILTIAZEM HCL 90MG TABLET PO SCH (23:09)
[2019-09-30] VITALS (8 sets, daily range): BP systolic 122–135; BP diastolic 56–95
[2019-09-30] MEDS: ONDANSETRON HCL 4MG/2ML INJ IV PRN ×2 (00:45→20:37)
[2019-09-30] MEDS: DILTIAZEM HCL 90MG TABLET PO SCH ×3 (05:45→17:41)
[2019-09-30] MEDS: MEROPENEM 500 MG in SODIUM CHLORIDE 0.9% 50 ML IV SCH ×3 (05:53→21:05)
[2019-09-30 06:23] LABS: BASOPHILS % 0.2 % (0.0-2.0); HEMATOCRIT. 35.4 % (36.0-48.0); HEMOGLOBIN. 11.8 g/dL (12.0-16.0); LYMPHOCYTES % 11.3 % (20.0-50.0); MEAN CORPUSCULAR HEMOGLOBIN 30.5 pg (28.0-32.0); MEAN CORPUSCULAR VOLUME 91.4 fL (81.0-99.0); MEAN PLATELET VOLUME 8.6 fl (7.4-10.4); NEUTROPHILS % 79.5 % (40.0-76.0); PLATELET 321 x1000/uL (130-400); RED BLOOD CELL COUNT 3.87 mill/uL (4.2-5.4); RED CELL DISTRIBUTION WIDTH 15.2 % (11.6-14.6)
[2019-09-30 06:25] LABS: INR 1.1; PROTHROMBIN TIME 12.2 sec (9.6-11.0)
[2019-09-30 06:30] LABS: CHLORIDE 106 mEq/L (98-107)
[2019-09-30] MEDS: TRAMADOL 50MG TABLET PO PRN ×3 (08:01→20:36)
[2019-09-30] MEDS: RISPERIDONE 0.5MG TABLET PO SCH ×2 (08:02→20:36)
[2019-09-30] MEDS: PREDNISONE 5MG TABLET PO SCH (08:02)
[2019-09-30] MEDS: METOPROLOL TARTRATE 25MG TABLET PO SCH ×2 (08:02→20:36)
[2019-09-30] MEDS: ENOXAPARIN 60MG/0.6ML SYR SUBCUT SCH ×2 (08:03→20:37)
[2019-09-30] MEDS: SODIUM CHLORIDE 0.9% 1,000 ML IV SCH (14:02)
[2019-09-30] MEDS ORDERED: WARFARIN SODIUM 5MG TABLET PO SCH (18:00)
[2019-10-01] VITALS: BP 118/91
[2019-10-01 00:51] VITALS: BP 115/72
[2019-10-01] MEDS: DILTIAZEM HCL 90MG TABLET PO SCH ×5 (01:00→23:52)
[2019-10-01 04:00] VITALS: BP 115/70
[2019-10-01] MEDS: SODIUM CHLORIDE 0.9% 1,000 ML IV SCH (05:48)
[2019-10-01] MEDS: MEROPENEM 500 MG in SODIUM CHLORIDE 0.9% 50 ML IV SCH ×3 (05:48→21:18)
[2019-10-01 06:33] LABS: EOSINOPHILS % 0.7 % (0.0-5.0); HEMATOCRIT. 32.7 % (36.0-48.0); HEMOGLOBIN. 11.2 g/dL (12.0-16.0); INR 1.2; LYMPHOCYTES % 13.8 % (20.0-50.0); MEAN CORPUSCULAR HEMOGLOBIN 31.3 pg (28.0-32.0); MEAN CORPUSCULAR VOLUME 91.4 fL (81.0-99.0); MEAN PLATELET VOLUME 8.3 fl (7.4-10.4); MONOCYTES % 8.3 % (2.0-8.0); NEUTROPHILS % 76.2 % (40.0-76.0); PLATELET 288 x1000/uL (130-400); PROTHROMBIN TIME 12.7 sec (9.6-11.0); RED BLOOD CELL COUNT 3.58 mill/uL (4.2-5.4); RED CELL DISTRIBUTION WIDTH 15.2 % (11.6-14.6)
[2019-10-01 06:49] LABS: CHLORIDE 105 mEq/L (98-107)
[2019-10-01 08:00] VITALS: BP 114/79
[2019-10-01] MEDS: ENOXAPARIN 60MG/0.6ML SYR SUBCUT SCH ×2 (09:01→20:41)
[2019-10-01] MEDS: TRAMADOL 50MG TABLET PO PRN ×3 (09:01→23:52)
[2019-10-01] MEDS: RISPERIDONE 0.5MG TABLET PO SCH ×2 (09:01→20:41)
[2019-10-01] MEDS: METOPROLOL TARTRATE 25MG TABLET PO SCH ×2 (09:01→20:41)
[2019-10-01] MEDS: PREDNISONE 5MG TABLET PO SCH (09:01)
[2019-10-01 12:00] VITALS: BP 144/103
[2019-10-01 16:00] VITALS: BP 123/71
[2019-10-01] MEDS ORDERED: WARFARIN SODIUM 5MG TABLET PO NR (18:00)
[2019-10-01] MEDS: ONDANSETRON HCL 4MG/2ML INJ IV PRN (22:04)
[2019-10-01] MEDS: ACETAMINOPHEN 325MG TABLET PO PRN (22:05)
[2019-10-02 04:00] VITALS: BP 129/81
[2019-10-02] MEDS: DILTIAZEM HCL 90MG TABLET PO SCH ×3 (05:17→18:29)
[2019-10-02 06:22] LABS: INR 1.6; PROTHROMBIN TIME 17.4 sec (9.6-11.0)
[2019-10-02 08:00] VITALS: BP 128/62
[2019-10-02] MEDS: PREDNISONE 5MG TABLET PO SCH (08:44)
[2019-10-02] MEDS: RISPERIDONE 0.5MG TABLET PO SCH ×2 (08:44→20:55)
[2019-10-02] MEDS: METOPROLOL TARTRATE 25MG TABLET PO SCH (08:46)
[2019-10-02] MEDS: ENOXAPARIN 60MG/0.6ML SYR SUBCUT SCH ×2 (08:47→21:02)
[2019-10-02 12:00] VITALS: BP 106/64
[2019-10-02] MEDS: TRAMADOL 50MG TABLET PO PRN (13:59)
[2019-10-02 16:00] VITALS: BP 104/66
[2019-10-02 16:04] VITALS: BP 113/76
[2019-10-02 17:23] LABS: T4 FREE 1.32 ng/dL (0.76-1.46)
[2019-10-02] MEDS ORDERED: WARFARIN SODIUM 5MG TABLET PO SCH (18:00)
[2019-10-02] MEDS: ACETAMINOPHEN 325MG TABLET PO PRN (18:29)
[2019-10-02 20:00] VITALS: BP 123/74
[2019-10-02] MEDS ORDERED: METOPROLOL TARTRATE 50MG TABLET PO SCH (21:00)
[2019-10-13] MEDS ORDERED: METO25TA6 PO (14:29)
[2019-10-13] MEDS ORDERED: DILT360T13 PO (14:29)
[2019-10-13] MEDS ORDERED: RISP05 PO (14:29)
[2019-10-13] MEDS ORDERED: LEVO75TA7 PO (14:29)
== END 2019-10-02 22:40 | DRG 853 ==
LOC: ER 21:13 → 5EST 09-23 01:17 → ENRESERV 09-23 10:13
PROVIDERS: ADMIT Specialist; ATTEND Specialist
PROC: 0FT40ZZ Resection of Gallbladder, Open Approach (ICD-10-PCS; principal; 2019-09-28)
DX: A41.9 Sepsis, unspecified organism (principal); K85.10 Biliary acute pancreatitis without necrosis or infection; N17.0 Acute kidney failure with tubular necrosis; G92 Toxic encephalopathy; K80.67 Calculus of gallbladder and bile duct with acute and chronic cholecystitis with obstruction; I42.9 Cardiomyopathy, unspecified; I48.20 Chronic atrial fibrillation, unspecified; D68.9 Coagulation defect, unspecified; E46 Unspecified protein-calorie malnutrition; G62.81 Critical illness polyneuropathy; I50.40 Unspecified combined systolic (congestive) and diastolic (congestive) heart failure; E03.9 Hypothyroidism, unspecified; E78.00 Pure hypercholesterolemia, unspecified; E78.5 Hyperlipidemia, unspecified; F03.90 Unspecified dementia, unspecified severity, without behavioral disturbance, psychotic disturbance, mood disturbance, and anxiety; I25.10 Atherosclerotic heart disease of native coronary artery without angina pectoris; I49.5 Sick sinus syndrome; D64.9 Anemia, unspecified; E87.6 Hypokalemia; I11.0 Hypertensive heart disease with heart failure; R73.9 Hyperglycemia, unspecified; R74.0 Nonspecific elevation of levels of transaminase and lactic acid dehydrogenase [LDH]; R26.9 Unspecified abnormalities of gait and mobility; M19.041 Primary osteoarthritis, right hand; T45.515A Adverse effect of anticoagulants, initial encounter; K76.0 Fatty (change of) liver, not elsewhere classified; Z79.01 Long term (current) use of anticoagulants; Z82.49 Family history of ischemic heart disease and other diseases of the circulatory system; Z85.038 Personal history of other malignant neoplasm of large intestine; Z93.3 Colostomy status; Z95.0 Presence of cardiac pacemaker; Z95.1 Presence of aortocoronary bypass graft; Z95.2 Presence of prosthetic heart valve; Y92.89 Other specified places as the place of occurrence of the external cause; Z79.899 Other long term (current) drug therapy
CPT/HCPCS: 36415; 36600; 71045; 73130; 74176; 76700; 78227; 80048; 80053; 80061; 80076; 80162; 81003; 82150; 82375; 82805; 82962; 83036; 83605; 83735; 83880; 84439; 84443; 84484; 85025; 86705; 86709; 86803; 87340; 88304; 93005; 93306; 97162; 97166; 99285; A9537; J1100; J1160; J1170; J1630; J1650; J1956; J2185; J2250; J2270; J2405; J2543; J2704; J2710; J3010; J3480; J3490; J7060; J7512

== ENCOUNTER 2019-10-02 22:42 | Inpatient (IN) | payer MEDICARE, MEDICAID ==
[2019-10-01 22:42] VITALS: BP 104/56
[~2019-10-02] VITALS: Ht 142.2 cm; Wt 52.6 kg
[2019-10-02 22:42] VITALS: BP 104/56
[2019-10-03] VITALS: BP 108/62
[2019-10-03] MEDS ORDERED: ONDANSETRON HCL 4MG/2ML INJ IV PRN (00:45)
[2019-10-03] MEDS ORDERED: HALOPERIDOL LACTATE 5MG/ML VIAL IM PRN (00:45)
[2019-10-03] MEDS: DILTIAZEM HCL 90MG TABLET PO SCH ×4 (06:34→23:39)
[2019-10-03 08:02] VITALS: BP 120/69
[2019-10-03 08:24] LABS: BASOPHILS % 0.3 % (0.0-2.0); EOSINOPHILS % 1.4 % (0.0-5.0); HEMATOCRIT. 35.7 % (36.0-48.0); HEMOGLOBIN. 12.1 g/dL (12.0-16.0); LYMPHOCYTES % 12.5 % (20.0-50.0); MEAN CORPUSCULAR HEMOGLOBIN 30.8 pg (28.0-32.0); MEAN PLATELET VOLUME 8.5 fl (7.4-10.4); MONOCYTES % 6.7 % (2.0-8.0); NEUTROPHILS % 79.1 % (40.0-76.0); PLATELET 393 x1000/uL (130-400); RED BLOOD CELL COUNT 3.92 mill/uL (4.2-5.4); RED CELL DISTRIBUTION WIDTH 15.6 % (11.6-14.6)
[2019-10-03 08:37] LABS: CHLORIDE 101 mEq/L (98-107)
[2019-10-03] MEDS: PREDNISONE 5MG TABLET PO SCH (09:08)
[2019-10-03] MEDS: RISPERIDONE 0.5MG TABLET PO SCH ×2 (09:08→21:41)
[2019-10-03] MEDS: TRAMADOL 50MG TABLET PO PRN ×2 (09:08→14:31)
[2019-10-03] MEDS: METOPROLOL TARTRATE 25MG TABLET PO SCH ×2 (09:09→21:00)
[2019-10-03] MEDS: ENOXAPARIN 60MG/0.6ML SYR SUBCUT SCH ×2 (09:10→21:43)
[2019-10-03 15:47] LABS: PROTHROMBIN TIME 21.6 sec (9.6-11.0)
[2019-10-03] MEDS ORDERED: WARFARIN SODIUM 5MG TABLET PO SCH (18:00)
[2019-10-03] MEDS ORDERED: WARFARIN SODIUM 4MG TABLET PO SCH (18:00)
[2019-10-03 20:00] VITALS: BP 116/59
[2019-10-03] MEDS: METRONIDAZOLE 500MG TABLET PO SCH (21:41)
[2019-10-04] MEDS: DILTIAZEM HCL 90MG TABLET PO SCH ×4 (05:47→23:29)
[2019-10-04 06:54] LABS: INR 2.5; PROTHROMBIN TIME 26.9 sec (9.6-11.0)
[2019-10-04 07:02] LABS: BASOPHILS % 0.6 % (0.0-2.0); EOSINOPHILS % 1.9 % (0.0-5.0); HEMATOCRIT. 35.4 % (36.0-48.0); HEMOGLOBIN. 11.8 g/dL (12.0-16.0); LYMPHOCYTES % 11.8 % (20.0-50.0); MEAN CORPUSCULAR HEMOGLOBIN 30.6 pg (28.0-32.0); MONOCYTES % 6.7 % (2.0-8.0); PLATELET 374 x1000/uL (130-400); RED BLOOD CELL COUNT 3.85 mill/uL (4.2-5.4); RED CELL DISTRIBUTION WIDTH 15.7 % (11.6-14.6)
[2019-10-04 07:43] LABS: CHLORIDE 102 mEq/L (98-107)
[2019-10-04 08:24] VITALS: BP 119/81
[2019-10-04] MEDS: METRONIDAZOLE 500MG TABLET PO SCH ×2 (08:56→20:48)
[2019-10-04] MEDS: RISPERIDONE 0.5MG TABLET PO SCH ×2 (08:56→20:48)
[2019-10-04] MEDS: PREDNISONE 5MG TABLET PO SCH (08:56)
[2019-10-04] MEDS: TRAMADOL 50MG TABLET PO PRN (08:57)
[2019-10-04] MEDS: METOPROLOL TARTRATE 25MG TABLET PO SCH ×2 (08:58→20:49)
[2019-10-04] MEDS: ENOXAPARIN 60MG/0.6ML SYR SUBCUT SCH (08:58)
[2019-10-04] MEDS: LEVOFLOXACIN 500MG TABLET PO SCH (11:13)
[2019-10-04] MEDS ORDERED: WARFARIN SODIUM 4MG TABLET PO NR (18:00)
[2019-10-04 20:00] VITALS: BP 115/53
[2019-10-04 22:36] LABS: CLARITY URINE CLEAR (CLEAR); COLOR URINE YELLOW (YELLOW); KETONES URINE NEGATIVE (NEGATIVE); LEUKOCYTE ESTERASE URINE NEGATIVE (NEGATIVE); NITRITE URINE NEGATIVE (NEGATIVE); OCCULT BLOOD URINE NEGATIVE (NEGATIVE); PROTEIN URINE NEGATIVE (NEGATIVE); SPECIFIC GRAVITY URINE 1.012 (1.005-1.030); UROBILINOGEN URINE 0.2 E.U./dL (0.2-1.0)
[2019-10-04] MEDS: ACETAMINOPHEN 325MG TABLET PO PRN (23:58)
[2019-10-05] MEDS: DILTIAZEM HCL 90MG TABLET PO SCH ×4 (05:41→23:00)
[2019-10-05 06:10] LABS: INR 3.2; PROTHROMBIN TIME 34.1 sec (9.6-11.0)
[2019-10-05 06:29] LABS: HEMATOCRIT. 34.8 % (36.0-48.0); HEMOGLOBIN. 11.9 g/dL (12.0-16.0); MEAN CORPUSCULAR HEMOGLOBIN 31.2 pg (28.0-32.0); MEAN CORPUSCULAR VOLUME 91.4 fL (81.0-99.0); MEAN PLATELET VOLUME 9.1 fl (7.4-10.4); PLATELET 339 x1000/uL (130-400); RED BLOOD CELL COUNT 3.81 mill/uL (4.2-5.4); RED CELL DISTRIBUTION WIDTH 15.6 % (11.6-14.6)
[2019-10-05 06:34] LABS: FOLIC ACID (FOLATE) SERUM 19.1 ng/mL (>5.38)
[2019-10-05 06:45] LABS: CHLORIDE 104 mEq/L (98-107)
[2019-10-05 06:56] LABS: PHOSPHORUS 2.8 mg/dL (2.5-4.9)
[2019-10-05 06:57] LABS: TOTAL IRON BINDING CAPACITY 323 ug/dL (250-450)
[2019-10-05] MEDS: TRAMADOL 50MG TABLET PO PRN (07:31)
[2019-10-05 08:01] VITALS: BP 120/73
[2019-10-05] MEDS: METOPROLOL TARTRATE 25MG TABLET PO SCH ×3 (09:00→21:18)
[2019-10-05] MEDS: RISPERIDONE 0.5MG TABLET PO SCH ×2 (09:03→21:17)
[2019-10-05] MEDS: METRONIDAZOLE 500MG TABLET PO SCH ×2 (09:03→21:17)
[2019-10-05] MEDS ORDERED: CYANOCOBALAMIN 1000MCG/ML VIAL IM SCH (10:00)
[2019-10-05] MEDS: LEVOFLOXACIN 500MG TABLET PO SCH (10:03)
[2019-10-05 13:28] LABS: PLATELET ESTIMATE NORMAL
[2019-10-05] MEDS: ACETAMINOPHEN 325MG TABLET PO PRN ×2 (13:38→19:41)
[2019-10-05 20:00] VITALS: BP 132/78
[2019-10-05] MEDS: LEVOTHYROXINE SODIUM 75MCG TABLET PO SCH (21:17)
[2019-10-05] MEDS: TRAZODONE HCL 50MG TABLET PO PRN (22:58)
[2019-10-06] MEDS: DILTIAZEM HCL 90MG TABLET PO SCH ×4 (05:47→23:09)
[2019-10-06] MEDS: LEVOTHYROXINE SODIUM 75MCG TABLET PO SCH (06:03)
[2019-10-06 08:02] VITALS: BP 113/62
[2019-10-06] MEDS: METRONIDAZOLE 500MG TABLET PO SCH ×2 (09:16→20:00)
[2019-10-06] MEDS: METOPROLOL TARTRATE 25MG TABLET PO SCH ×2 (09:16→20:00)
[2019-10-06] MEDS: RISPERIDONE 0.5MG TABLET PO SCH ×2 (09:16→20:00)
[2019-10-06 09:26] LABS: PROTHROMBIN TIME 43.9 sec (9.6-11.0)
[2019-10-06 09:34] LABS: T4 FREE 1.64 ng/dL (0.76-1.46)
[2019-10-06 09:38] LABS: INR 4.2
[2019-10-06] MEDS: LEVOFLOXACIN 500MG TABLET PO SCH (11:24)
[2019-10-06] MEDS: TRAMADOL 50MG TABLET PO PRN (13:26)
[2019-10-06 20:00] VITALS: BP 101/56
[2019-10-06] MEDS: ACETAMINOPHEN 325MG TABLET PO PRN (21:38)
[2019-10-06] MEDS: TRAZODONE HCL 50MG TABLET PO PRN (23:09)
[2019-10-07] MEDS: DILTIAZEM HCL 90MG TABLET PO SCH ×4 (05:05→23:02)
[2019-10-07 06:34] LABS: INR 3.8; PROTHROMBIN TIME 39.7 sec (9.6-11.0)
[2019-10-07 08:00] VITALS: BP 116/63
[2019-10-07] MEDS: METOPROLOL TARTRATE 25MG TABLET PO SCH ×2 (09:00→20:29)
[2019-10-07] MEDS: METRONIDAZOLE 500MG TABLET PO SCH ×2 (09:36→20:28)
[2019-10-07] MEDS: RISPERIDONE 0.5MG TABLET PO SCH ×2 (09:36→20:28)
[2019-10-07] MEDS: LEVOFLOXACIN 500MG TABLET PO SCH (11:26)
[2019-10-07] MEDS: TRAMADOL 50MG TABLET PO PRN (16:13)
[2019-10-07 20:00] VITALS: BP 102/72
[2019-10-07] MEDS: TRAZODONE HCL 50MG TABLET PO PRN (23:02)
[2019-10-08] MEDS: DILTIAZEM HCL 90MG TABLET PO SCH ×4 (05:49→23:33)
[2019-10-08 06:47] LABS: BASOPHILS % 0.5 % (0.0-2.0); EOSINOPHILS % 1.1 % (0.0-5.0); HEMATOCRIT. 33.8 % (36.0-48.0); HEMOGLOBIN. 11.5 g/dL (12.0-16.0); LYMPHOCYTES % 13.5 % (20.0-50.0); MEAN CORPUSCULAR HEMOGLOBIN 30.9 pg (28.0-32.0); MEAN CORPUSCULAR VOLUME 90.6 fL (81.0-99.0); MEAN PLATELET VOLUME 9.6 fl (7.4-10.4); MONOCYTES % 9.7 % (2.0-8.0); NEUTROPHILS % 75.2 % (40.0-76.0); PLATELET 288 x1000/uL (130-400); RED BLOOD CELL COUNT 3.73 mill/uL (4.2-5.4); RED CELL DISTRIBUTION WIDTH 15.9 % (11.6-14.6)
[2019-10-08 06:52] LABS: INR 2.8; PROTHROMBIN TIME 29.9 sec (9.6-11.0)
[2019-10-08 06:58] LABS: CHLORIDE 106 mEq/L (98-107)
[2019-10-08 07:08] LABS: T4 FREE 1.27 ng/dL (0.76-1.46)
[2019-10-08 08:21] VITALS: BP 117/64
[2019-10-08] MEDS: RISPERIDONE 0.5MG TABLET PO SCH ×2 (08:22→20:50)
[2019-10-08] MEDS: METRONIDAZOLE 500MG TABLET PO SCH ×2 (08:22→20:50)
[2019-10-08] MEDS: METOPROLOL TARTRATE 25MG TABLET PO SCH ×2 (08:23→20:50)
[2019-10-08] MEDS: LEVOFLOXACIN 500MG TABLET PO SCH (11:33)
[2019-10-08] MEDS ORDERED: WARFARIN SODIUM 2.5MG TABLET PO NR (18:00)
[2019-10-08] MEDS: ACETAMINOPHEN 325MG TABLET PO PRN (19:40)
[2019-10-08 20:00] VITALS: BP 95/68
[2019-10-08] MEDS: TRAZODONE HCL 50MG TABLET PO PRN (23:33)
[2019-10-09] MEDS: DILTIAZEM HCL 90MG TABLET PO SCH ×3 (05:18→17:00)
[2019-10-09] MEDS: ACETAMINOPHEN 325MG TABLET PO PRN ×2 (07:32→13:59)
[2019-10-09 08:20] VITALS: BP 104/65
[2019-10-09] MEDS: METOPROLOL TARTRATE 25MG TABLET PO SCH ×2 (09:00→21:00)
[2019-10-09 09:10] LABS: BASOPHILS % 0.7 % (0.0-2.0); EOSINOPHILS % 0.5 % (0.0-5.0); HEMATOCRIT. 36.9 % (36.0-48.0); HEMOGLOBIN. 12.3 g/dL (12.0-16.0); LYMPHOCYTES % 14.6 % (20.0-50.0); MEAN CORPUSCULAR HEMOGLOBIN 30.4 pg (28.0-32.0); MEAN CORPUSCULAR VOLUME 91.4 fL (81.0-99.0); MEAN PLATELET VOLUME 9.9 fl (7.4-10.4); MONOCYTES % 9.6 % (2.0-8.0); NEUTROPHILS % 74.6 % (40.0-76.0); PLATELET 287 x1000/uL (130-400); RED BLOOD CELL COUNT 4.04 mill/uL (4.2-5.4); RED CELL DISTRIBUTION WIDTH 16.2 % (11.6-14.6)
[2019-10-09 09:12] LABS: INR 2.4; PROTHROMBIN TIME 25.3 sec (9.6-11.0)
[2019-10-09 09:29] LABS: CHLORIDE 104 mEq/L (98-107)
[2019-10-09] MEDS: METRONIDAZOLE 500MG TABLET PO SCH ×2 (09:35→21:37)
[2019-10-09] MEDS: RISPERIDONE 0.5MG TABLET PO SCH ×2 (09:35→21:37)
[2019-10-09 10:59] VITALS: BP 106/53
[2019-10-09] MEDS: LEVOFLOXACIN 500MG TABLET PO SCH (12:08)
[2019-10-09 13:10] LABS: 25-HYDROXY VITAMIN D3 6.2 ng/mL (.)
[2019-10-09 16:58] VITALS: BP 96/53
[2019-10-09] MEDS ORDERED: WARFARIN SODIUM 3MG TABLET PO NR (18:00)
[2019-10-09 20:00] VITALS: BP 99/72
[2019-10-10] MEDS: DILTIAZEM HCL 90MG TABLET PO SCH ×4 (00:32→17:09)
[2019-10-10] MEDS: TRAZODONE HCL 50MG TABLET PO PRN (00:36)
[2019-10-10] MEDS: TRAMADOL 50MG TABLET PO PRN (06:33)
[2019-10-10 07:07] LABS: INR 2.8; PROTHROMBIN TIME 29.8 sec (9.6-11.0)
[2019-10-10 08:14] VITALS: BP 109/55
[2019-10-10] MEDS: RISPERIDONE 0.5MG TABLET PO SCH ×2 (08:58→21:51)
[2019-10-10] MEDS: METRONIDAZOLE 500MG TABLET PO SCH ×2 (08:58→21:51)
[2019-10-10] MEDS: METOPROLOL TARTRATE 25MG TABLET PO SCH ×2 (08:58→21:00)
[2019-10-10] MEDS: LEVOFLOXACIN 500MG TABLET PO SCH (10:04)
[2019-10-10] MEDS ORDERED: WARFARIN SODIUM 2.5MG TABLET PO SCH (18:00)
[2019-10-10 20:00] VITALS: BP 97/55
[2019-10-11] MEDS: DILTIAZEM HCL 90MG TABLET PO SCH ×3 (06:09→11:15)
[2019-10-11] MEDS: TRAMADOL 50MG TABLET PO PRN (06:34)
[2019-10-11 08:00] VITALS: BP 97/56
[2019-10-11] MEDS: METOPROLOL TARTRATE 25MG TABLET PO SCH ×2 (09:56→21:00)
[2019-10-11] MEDS: RISPERIDONE 0.5MG TABLET PO SCH ×2 (09:56→21:05)
[2019-10-11 10:35] LABS: INR 3.7; PROTHROMBIN TIME 38.4 sec (9.6-11.0)
[2019-10-11] MEDS: LEVOFLOXACIN 500MG TABLET PO SCH (11:14)
[2019-10-11] MEDS: ACETAMINOPHEN 325MG TABLET PO PRN (14:35)
[2019-10-11] MEDS: DILTIAZEM HCL 60MG TABLET PO SCH (18:00)
[2019-10-11 20:00] VITALS: BP 93/45
[2019-10-12 04:00] VITALS: BP 118/54
[2019-10-12] MEDS: DILTIAZEM HCL 60MG TABLET PO SCH ×5 (05:53→23:02)
[2019-10-12] MEDS: LEVOTHYROXINE SODIUM 25MCG TABLET PO SCH (06:00)
[2019-10-12 08:00] VITALS: BP 103/55
[2019-10-12 08:58] LABS: BASOPHILS % 0.2 % (0.0-2.0); EOSINOPHILS % 0.2 % (0.0-5.0); HEMATOCRIT. 29.8 % (36.0-48.0); HEMOGLOBIN. 10.3 g/dL (12.0-16.0); LYMPHOCYTES % 9.3 % (20.0-50.0); MEAN CORPUSCULAR HEMOGLOBIN 31.3 pg (28.0-32.0); MEAN CORPUSCULAR VOLUME 90.8 fL (81.0-99.0); MEAN PLATELET VOLUME 9.5 fl (7.4-10.4); MONOCYTES % 8.1 % (2.0-8.0); NEUTROPHILS % 82.2 % (40.0-76.0); PLATELET 238 x1000/uL (130-400); RED BLOOD CELL COUNT 3.28 mill/uL (4.2-5.4)
[2019-10-12] MEDS: METOPROLOL TARTRATE 25MG TABLET PO SCH ×2 (09:00→20:35)
[2019-10-12 09:12] LABS: CHLORIDE 97 mEq/L (98-107)
[2019-10-12 09:17] LABS: INR 3.5; PROTHROMBIN TIME 36.9 sec (9.6-11.0)
[2019-10-12] MEDS: RISPERIDONE 0.5MG TABLET PO SCH ×2 (09:42→20:34)
[2019-10-12] MEDS ORDERED: SODIUM CHLORIDE 0.9% 500 ML IV SCH (15:00)
[2019-10-12 20:00] VITALS: BP 101/36
[2019-10-12] MEDS: TRAZODONE HCL 50MG TABLET PO PRN (23:01)
[2019-10-13] MEDS: DILTIAZEM HCL 60MG TABLET PO SCH ×4 (05:37→23:12)
[2019-10-13] MEDS: LEVOTHYROXINE SODIUM 25MCG TABLET PO SCH (06:05)
[2019-10-13 06:42] LABS: INR 2.6; PROTHROMBIN TIME 27.9 sec (9.6-11.0)
[2019-10-13 08:00] VITALS: BP 91/43
[2019-10-13] MEDS: METOPROLOL TARTRATE 25MG TABLET PO SCH ×3 (08:19→21:46)
[2019-10-13] MEDS: RISPERIDONE 0.5MG TABLET PO SCH ×2 (08:19→21:46)
[2019-10-13] MEDS ORDERED: METO25TA6 PO (14:29)
[2019-10-13] MEDS ORDERED: RISP05 PO (14:29)
[2019-10-13] MEDS ORDERED: DILT360T13 PO (14:29)
[2019-10-13] MEDS ORDERED: LEVO75TA7 PO (14:29)
[2019-10-13 16:10] LABS: BASOPHILS % 0.5 % (0.0-2.0); EOSINOPHILS % 0.3 % (0.0-5.0); HEMATOCRIT. 32.2 % (36.0-48.0); HEMOGLOBIN. 10.8 g/dL (12.0-16.0); LYMPHOCYTES % 13.7 % (20.0-50.0); MEAN CORPUSCULAR HEMOGLOBIN 30.9 pg (28.0-32.0); MEAN CORPUSCULAR VOLUME 91.6 fL (81.0-99.0); MONOCYTES % 8.8 % (2.0-8.0); NEUTROPHILS % 76.7 % (40.0-76.0); PLATELET 311 x1000/uL (130-400); RED BLOOD CELL COUNT 3.51 mill/uL (4.2-5.4); RED CELL DISTRIBUTION WIDTH 15.9 % (11.6-14.6)
[2019-10-13 16:24] LABS: CHLORIDE 106 mEq/L (98-107)
[2019-10-13] MEDS ORDERED: WARFARIN SODIUM 2.5MG TABLET PO SCH (18:00)
[2019-10-13 20:00] VITALS: BP 133/69
[2019-10-13] MEDS: TRAZODONE HCL 50MG TABLET PO PRN (23:11)
[2019-10-14] MEDS: DILTIAZEM HCL 60MG TABLET PO SCH (05:31)
[2019-10-14] MEDS: LEVOTHYROXINE SODIUM 25MCG TABLET PO SCH (06:33)
[2019-10-14 06:58] LABS: BASOPHILS % 0.5 % (0.0-2.0); EOSINOPHILS % 0.8 % (0.0-5.0); HEMATOCRIT. 29.4 % (36.0-48.0); HEMOGLOBIN. 10.1 g/dL (12.0-16.0); LYMPHOCYTES % 22.5 % (20.0-50.0); MEAN CORPUSCULAR HEMOGLOBIN 31.5 pg (28.0-32.0); MEAN CORPUSCULAR VOLUME 91.8 fL (81.0-99.0); MEAN PLATELET VOLUME 9.6 fl (7.4-10.4); MONOCYTES % 9.5 % (2.0-8.0); NEUTROPHILS % 66.7 % (40.0-76.0); PLATELET 249 x1000/uL (130-400); RED CELL DISTRIBUTION WIDTH 15.9 % (11.6-14.6)
[2019-10-14 07:01] LABS: CHLORIDE 107 mEq/L (98-107)
[2019-10-14 07:07] LABS: INR 2.4; PROTHROMBIN TIME 25.1 sec (9.6-11.0)
[2019-10-14 08:00] VITALS: BP 120/60
[2019-10-14] MEDS: METOPROLOL TARTRATE 25MG TABLET PO SCH (08:12)
[2019-10-14] MEDS: RISPERIDONE 0.5MG TABLET PO SCH (08:12)
[2019-10-14 10:34] VITALS: BP 120/60
[2019-10-14] MEDS ORDERED: WARFARIN SODIUM 2.5MG TABLET PO SCH (18:00)
== END 2019-10-14 12:15 | disposition home health service (06) | DRG 73 ==
PROVIDERS: ADMIT Physical Medicine & Rehabilitation Spinal Cord Injury Medicine; ATTEND Internal Medicine
DX: G62.81 Critical illness polyneuropathy (principal); A41.9 Sepsis, unspecified organism; G92 Toxic encephalopathy; K85.10 Biliary acute pancreatitis without necrosis or infection; N17.0 Acute kidney failure with tubular necrosis; C18.9 Malignant neoplasm of colon, unspecified; E46 Unspecified protein-calorie malnutrition; I42.9 Cardiomyopathy, unspecified; I48.20 Chronic atrial fibrillation, unspecified; K80.66 Calculus of gallbladder and bile duct with acute and chronic cholecystitis without obstruction; E87.1 Hypo-osmolality and hyponatremia; R53.81 Other malaise; D64.9 Anemia, unspecified; E78.00 Pure hypercholesterolemia, unspecified; E03.9 Hypothyroidism, unspecified; E78.5 Hyperlipidemia, unspecified; E83.51 Hypocalcemia; E87.6 Hypokalemia; F03.90 Unspecified dementia, unspecified severity, without behavioral disturbance, psychotic disturbance, mood disturbance, and anxiety; I25.10 Atherosclerotic heart disease of native coronary artery without angina pectoris; I49.5 Sick sinus syndrome; J44.9 Chronic obstructive pulmonary disease, unspecified; M19.90 Unspecified osteoarthritis, unspecified site; Z79.01 Long term (current) use of anticoagulants; Z85.038 Personal history of other malignant neoplasm of large intestine; Z86.711 Personal history of pulmonary embolism; Z90.49 Acquired absence of other specified parts of digestive tract; Z93.3 Colostomy status; Z95.0 Presence of cardiac pacemaker; Z95.1 Presence of aortocoronary bypass graft; Z95.2 Presence of prosthetic heart valve; R74.0 Nonspecific elevation of levels of transaminase and lactic acid dehydrogenase [LDH]; R73.9 Hyperglycemia, unspecified; R26.9 Unspecified abnormalities of gait and mobility; M25.551 Pain in right hip; I95.9 Hypotension, unspecified; I11.9 Hypertensive heart disease without heart failure
CPT/HCPCS: 36415; 80048; 80053; 81003; 82306; 82533; 82607; 82728; 82746; 83540; 83550; 83735; 83930; 84100; 84134; 84439; 84443; 84481; 85025; 86376; 92523; 93005; 93970; 97110; 97112; 97116; 97129; 97130; 97162; 97166; 97530; 97535; J1650; J2405; J3420; J7512